=== PATIENT | male | born 1960 | race Caucasian/White ===

== ENCOUNTER 2018-07-08 22:42 | Emergency (ER) | payer OTHER ==
[~2018-07-08] VITALS: Ht 177.8 cm; Wt 93.4 kg
[2018-07-08 22:51] VITALS: Ht 177.8 cm; Wt 93.4 kg
[2018-07-08 23:25] VITALS: BP 132/92
== END 2018-07-08 23:25 | disposition home or self-care (01) ==
LOC: ED 22:42
DX: L02.212 Cutaneous abscess of back [any part, except buttock and flank] (principal); Z88.8 Allergy status to other drugs, medicaments and biological substances
CPT/HCPCS: J2001

== ENCOUNTER 2018-07-11 11:49 | Emergency (ER) | payer OTHER ==
[~2018-07-11] VITALS: Ht 177.8 cm; Wt 92.1 kg
[2018-07-11 12:09] VITALS: BP 108/65; Ht 177.8 cm; Wt 92.1 kg
== END 2018-07-11 12:53 | disposition home or self-care (01) ==
LOC: ED 11:49
DX: L02.212 Cutaneous abscess of back [any part, except buttock and flank] (principal); Z90.89 Acquired absence of other organs; Z90.49 Acquired absence of other specified parts of digestive tract; Z88.8 Allergy status to other drugs, medicaments and biological substances